=== PATIENT | female | born 1960 | race African-American/Black ===

== ENCOUNTER 2017-01-31 16:12 | Emergency (ER) | payer OTHER ==
--- NOTE | ~2017-01-31 | CR127 ---
[facility] A Service of [facility] & [facility] RADIOLOGY TEXT RESULTS PATIENT: MOHAN SYED LOCATION: CFTX : 62 UNIT #: [id number] AGE: [address]: Alta Pérez APRN SEX: F ORDER DR: [id number] [facility] [address] [place], [place] [address] [id number] E MR#: [id number] Acc #: [id number] NAME: MOHAN SYED : 1960 SEX: F STUDY DATE/TIME: 01/31/2017 17:46 UNIT: [facility] ROOM: STUDY DESCRIPTION: CR Foot Complete Min 3 View Rt Attending Physician: Alta Pérez A.P.R.N. Ordering Physician: Rajan See M.D. Primary Care Physician: No Primary Care Physician MEDICAL IMAGING REPORT This report is preliminary unless electronic signature is present EXAM Right foot series; 01/31/2017. HISTORY Pain. Patient had foot surgery for a bunion. Pain started several days. TECHNIQUE AP, lateral and oblique radiographs of the right foot presented. COMPARISON No prior right foot series for comparison at this institution. FINDINGS No acute traumatic fracture or malalignment. Postoperative changes first metatarsal bunionectomy. Orthopedic screw transversely across the distal shaft of the first metatarsal. No nonorthopedic radiopaque foreign body. No soft tissue defect or subcutaneous air. Dictated by... Fahad Tavarez M.D. THIS IS AN ELECTRONICALLY VERIFIED REPORT Fahad Tavarez M.D. at 02/01/2017 7:11 PM Janett TD: 02/01/2017 00:09 JOB #: [id number] MEDICAL IMAGING REPORT Page 1 of 1 COPY
[~2017-01-31 16:12] MED LIST: ACETAMINOPHEN PR; AMOXICILLIN PO; AMOXICILLIN500 M1 PO; AMOXIL875 MG PO; ASPIRIN PO; ATIVAN PO; BACTRIM DS TABL1 TA1 PO; BACTRIM DS TABL1 TAB PO; CARAFATE PO; CERTAGEN PO; COMBIVENT MININEB INH; DOXYCYCLINE PO; ELIMITE60 GM TOP; FERROUS SULFATE PO; HCTZ PO; HYDROCHLOROTHIA25 MG PO; ISORDIL PO; LACTULOSE10 G/15 ML PO; LISINOPRIL PO; MEDROL4 MG/DOSE- PO; MILK OF MAGNESIA PO; NAPROSYN500 MG PO; NORVASC; NORVASC PO; PHENERGAN W/CO120 ML PO; PREDNISONE; PROTONIX PO; ROBITUSSIN A-C-S1 ML PO; TESSALON200 MG PO; TUSSIONEX PENN473 ML PO; UNKNOWN MED; VERAPAMIL HCL240 MG PO; VICODIN 5/500 T1 TAB; VICODIN 5/500 T1 TAB PO; VITAMIN C PO; ZITHROMAX PO; [UNRECOGNIZED DRUG - OTHER]
== END 2017-01-31 18:59 | disposition home or self-care (01) ==
LOC: CED 16:12 → CFTX 16:12
DX: G89.29 Other chronic pain (principal); M79.671 Pain in right foot; E78.00 Pure hypercholesterolemia, unspecified; I10 Essential (primary) hypertension; F17.210 Nicotine dependence, cigarettes, uncomplicated; Z79.899 Other long term (current) drug therapy; Z88.6 Allergy status to analgesic agent
CPT/HCPCS: 73630; 99283